=== PATIENT | male | born 1945 | race Caucasian/White ===

== ENCOUNTER → 2018-01-26 | Outpatient (CLI) | payer OTHER ==
[~2018-01-26] VITALS: Ht 182.9 cm; Wt 123.4 kg
[~2018-01-26] MED LIST: FLONASE 0.05%50 MCG PO; GLUCOTROL5 MG PO; LISINOPRIL5 MG PO; LOVASTATIN 20 M20 MG PO; METFORMIN HCL500 MG PO; PROZAC20 MG PO; TENORMIN50 MG PO; TRAMADOL 50 MG50 MG PO
[2018-01-26 12:49] VITALS: BP 205/107
[2018-01-26 12:50] LABS: HEMATOCRIT 42.8 % (42.0-52.0); HEMOGLOBIN 14.7 gm/dL (14.0-18.0); MCH 31.3 pg (26.0-34.0); MCHC 34.4 g/dL (28.0-37.0); RBC 4.7 mil/uL (4.50-6.00); RDW 13.3 % (10.5-14.5); WBC 9.1 thou/uL (4.0-11.0)
[2018-01-26 13:02] LABS: CALCIUM 9.5 mg/dL (8.5-10.1); CREATININE 1.5 mg/dL (0.7-1.3); POTASSIUM 3.2 mmol/L (3.5-5.1)
[2018-01-26 13:04] LABS: APTT 27.5 Seconds (24.5-32.8)
== END | disposition home or self-care (01) ==
LOC: SPEC 11:48
PROVIDERS: Radiology Diagnostic Radiology
DX: S32.010A Wedge compression fracture of first lumbar vertebra, initial encounter for closed fracture (principal); M81.0 Age-related osteoporosis without current pathological fracture; M54.5 Low back pain; E11.9 Type 2 diabetes mellitus without complications; I10 Essential (primary) hypertension; G25.81 Restless legs syndrome; Z98.890 Other specified postprocedural states; Z85.46 Personal history of malignant neoplasm of prostate; Z86.73 Personal history of transient ischemic attack (TIA), and cerebral infarction without residual deficits; Z79.899 Other long term (current) drug therapy; V29.88XA Motorcycle rider (driver) (passenger) injured in other specified transport accidents, initial encounter; Y93.89 Activity, other specified; Y92.89 Other specified places as the place of occurrence of the external cause; Y99.8 Other external cause status